=== PATIENT | male | born 1970 | race Hispanic/Latino ===

== ENCOUNTER 2017-10-13 21:23 | Emergency (ER) | payer SELFPAY ==
[~2017-10-13 21:23] MED LIST: LACT10SO9 PO; LEVO50TA4 PO; PANT40TA25 PO; PROP1VIA6 PO
== END 2017-10-13 22:33 | disposition home or self-care (01) ==
LOC: EDH 21:23
DX: M79.604 Pain in right leg (principal); I10 Essential (primary) hypertension
CPT/HCPCS: 99281

== ENCOUNTER 2018-05-09 19:26 | Emergency (ER) | payer OTHER ==
[2018-05-09] MEDS ORDERED: ACETAMINOPHEN EXTRA STRENGTH 500 MG TABLET ONE (21:55)
== END 2018-05-09 21:59 | disposition home or self-care (01) ==
LOC: EDH 19:26
DX: S02.31XA Fracture of orbital floor, right side, initial encounter for closed fracture (principal); I10 Essential (primary) hypertension; R22.0 Localized swelling, mass and lump, head; Y04.2XXA Assault by strike against or bumped into by another person, initial encounter; Y93.89 Activity, other specified; Y92.098 Other place in other non-institutional residence as the place of occurrence of the external cause; Y99.8 Other external cause status
CPT/HCPCS: 70450; 70486

== ENCOUNTER 2022-11-05 13:42 | Emergency (ER) | payer BC ==
[~2022-11-05] VITALS: Ht 177.8 cm; Wt 93.0 kg
[~2022-11-05 13:42] MED LIST changes: -PANT40TA25 PO; +PANT40TA55 PO
[2022-11-05 13:43] VITALS: BP 145/87
[2022-11-05] MEDS ORDERED: PANTOPRAZOLE 40 MG/VIAL IV ONE (14:30)
[2022-11-05] MEDS ORDERED: 0.9%NACL 1000ML 1,000 ML IV SCH (14:30)
[2022-11-05] MEDS ORDERED: MORPHINE 4 MG SYG IVP ONE (14:30)
[2022-11-05 14:45] LABS: BASOPHILS % (AUTO) 0.7 % (0.0-5.0); HEMATOCRIT 38.9 % (42-54); LYMPHOCYTES % (AUTO) 3.8 % (21.0-51.0); MEAN CORPUSCULAR HEMOGLOBIN 30.7 pg (27.0-33.0); MEAN CORPUSCULAR HGB CONC 32.4 g/dL (32.0-36.0); MEAN CORPUSCULAR VOLUME 94.9 fL (79-99); MONOCYTES % (AUTO) 7.6 % (3.0-13.0); NEUTROPHILS % (AUTO) 85.4 % (40.0-77.0); PLATELET COUNT (AUTO) 36 K/uL (130-400); RED CELL DISTRIBUTION WIDTH 16.7 % (11.0-15.5); WHITE BLOOD COUNT (AUTO) 6.1 K/uL (4.8-10.8)
[2022-11-05 15:15] LABS: PLATELET MORPHOLOGY COMMENT MARKED DECREASE
[2022-11-05 15:18] LABS: ALBUMIN 3.1 g/dL (3.5-5.0)
[2022-11-05] MEDS ORDERED: ONDA4TAB10 PO (16:12)
[2022-11-05] MEDS ORDERED: ESOM40CA PO (16:12)
== END 2022-11-05 16:18 | disposition home or self-care (01) ==
LOC: EDH 13:42
DX: I10 Essential (primary) hypertension (principal); K74.60 Unspecified cirrhosis of liver; Z79.899 Other long term (current) drug therapy; Z98.890 Other specified postprocedural states
CPT/HCPCS: 99284; 96374; 96375; 80053; 83690; 85025; 36415; J2270; C9113

== ENCOUNTER 2023-03-02 09:11 | Emergency (ER) | payer OTHER ==
[~2023-03-02] VITALS: Ht 177.8 cm; Wt 90.3 kg
[~2023-03-02 09:11] MED LIST changes: +ESOM40CA PO; -LEVO50TA4 PO; +LEVO75 PO; +ONDA4TAB10 PO
[2023-03-02] MEDS ORDERED: 0.9%NACL 1000ML 1,000 ML IV ONE (10:00)
[2023-03-02 10:01] LABS: BASOPHILS # (AUTO) 0.04 K/uL (0.00-0.20); EOSINOPHILS # (AUTO) 0.21 K/uL (0.00-0.70); EOSINOPHILS % (AUTO) 5.4 % (0.0-8.0); HEMATOCRIT 35.3 % (42-54); IMMATURE GRANULOCYTE ABSOLUTE 0.05 K/uL (0-1); LYMPHOCYTES # (AUTO) 0.4 K/uL (1.0-4.8); LYMPHOCYTES % (AUTO) 10.1 % (21.0-51.0); MEAN CORPUSCULAR HEMOGLOBIN 32.5 pg (27.0-33.0); MEAN CORPUSCULAR HGB CONC 33.7 g/dL (32.0-36.0); MEAN CORPUSCULAR VOLUME 96.4 fL (79-99); MONOCYTES # (AUTO) 0.4 K/uL (0.1-1.0); MONOCYTES % (AUTO) 10.6 % (3.0-13.0); NEUTROPHILS # (AUTO) 2.8 K/uL (1.8-7.7); NEUTROPHILS % (AUTO) 71.6 % (40.0-77.0); PLATELET COUNT (AUTO) 34 K/uL (130-400); RED BLOOD CELL COUNT(AUTO) 3.66 MIL/uL (4.50-6.20); RED CELL DISTRIBUTION WIDTH 16.8 % (11.0-15.5); WHITE BLOOD COUNT (AUTO) 3.9 K/uL (4.8-10.8)
[2023-03-02 10:08] LABS: CREATININE 0.9 mg/dL (0.5-1.5); POTASSIUM 4.1 mmol/L (3.5-5.1)
[2023-03-02 10:13] LABS: ALBUMIN 2.7 g/dL (3.5-5.0); BILIRUBIN,TOTAL 1.2 mg/dL (0.2-1.0)
[2023-03-02 10:14] LABS: INR 1.18 (0.85-1.15); PROTHROMBIN TIME 13.5 SEC (9.6-11.6)
[2023-03-02 10:33] LABS: PLATELET MORPHOLOGY COMMENT MARKED DECREASE
[2023-03-02 10:43] LABS: MAGNESIUM 1.9 mg/dL (1.80-2.40); THYROID STIMULATING HORMONE 36.85 uIU/mL (0.36-3.74)
[2023-03-02 10:51] LABS: APPEARANCE,URINE CLEAR (CLEAR); BILIRUBIN,URINE NEGATIVE (NEGATIVE); COLOR,URINE YELLOW (YELLOW); GLUCOSE, URINE (UA) NEGATIVE (NEGATIVE); KETONES,URINE NEGATIVE (NEGATIVE); LEUKOCYTE ESTERASE ,URINE NEGATIVE Leu/uL (NEGATIVE); NITRATE,URINE NEGATIVE (NEGATIVE); OCCULT BLOOD,URINE NEGATIVE (NEGATIVE); PROTEIN,URINE NEGATIVE (NEGATIVE)
[2023-03-02 11:03] LABS: ADD UA MICROSCOPIC YES
[2023-03-02 11:04] LABS: RBC,URINE 0-1 /HPF (0-1); WBC,URINE 0-1 /HPF (0-1)
[2023-03-02] MEDS ORDERED: LACTULOSE 20 GM/30 ML UDCUP PO ONE (14:30)
[2023-03-02] MEDS ORDERED: PROP10TA10 PO (14:31)
[2023-03-02] MEDS ORDERED: PANT20TA18 PO (14:31)
[2023-03-02] MEDS ORDERED: LACT10SO9 PO (14:31)
[2023-03-02 14:44] VITALS: BP 123/78; PULSE 74; RESP 18; O2SAT 98
== END 2023-03-02 14:48 | disposition home or self-care (01) ==
LOC: EDH 09:11
DX: R14.0 Abdominal distension (gaseous) (principal); K70.30 Alcoholic cirrhosis of liver without ascites; E03.9 Hypothyroidism, unspecified; I10 Essential (primary) hypertension; Z79.890 Hormone replacement therapy; Z79.899 Other long term (current) drug therapy
CPT/HCPCS: 99284; 96360; 76700; 96361; 84443; 83735; 80053; 82140; 83690; 85025; 85610; 85730; 82607; 81001; 36415; 74018; J7030

== ENCOUNTER 2023-03-21 08:43 | Emergency (ER) | payer OTHER ==
[~2023-03-21] VITALS: Ht 177.8 cm; Wt 90.7 kg
[~2023-03-21 08:43] MED LIST changes: +PANT20TA18 PO; +PROP10TA10 PO
[2023-03-21] MEDS ORDERED: LIDOCAINE HCL 2% VISCOUS 15 ML UDCUP PO ONE (09:00)
[2023-03-21] MEDS ORDERED: PANTOPRAZOLE 40 MG/VIAL IVP ONE (09:00)
[2023-03-21] MEDS ORDERED: MAG/ALUM/SIMETH 30 ML UDCUP PO ONE (09:00)
[2023-03-21] MEDS ORDERED: LACTATED RINGERS 1000ML 1,000 ML IV ONE (09:00)
[2023-03-21] MEDS ORDERED: ONDANSETRON 4MG INJ IVP ONE (09:00)
[2023-03-21] MEDS ORDERED: KETOROLAC 30MG VIAL (30MG/ML) IVP ONE (09:00)
[2023-03-21 09:24] LABS: BASOPHILS # (AUTO) 0.07 K/uL (0.00-0.20); BASOPHILS % (AUTO) 0.8 % (0.0-5.0); EOSINOPHILS % (AUTO) 2.2 % (0.0-8.0); HEMATOCRIT 40.3 % (42-54); IMMATURE GRANULOCYTE ABSOLUTE 0.06 K/uL (0-1); LYMPHOCYTES # (AUTO) 0.5 K/uL (1.0-4.8); LYMPHOCYTES % (AUTO) 5.5 % (21.0-51.0); MEAN CORPUSCULAR HEMOGLOBIN 32.4 pg (27.0-33.0); MEAN CORPUSCULAR HGB CONC 32.5 g/dL (32.0-36.0); MEAN CORPUSCULAR VOLUME 99.8 fL (79-99); MONOCYTES # (AUTO) 0.8 K/uL (0.1-1.0); MONOCYTES % (AUTO) 8.9 % (3.0-13.0); NEUTROPHILS # (AUTO) 7.3 K/uL (1.8-7.7); NEUTROPHILS % (AUTO) 81.9 % (40.0-77.0); PLATELET COUNT (AUTO) 49 K/uL (130-400); RED BLOOD CELL COUNT(AUTO) 4.04 MIL/uL (4.50-6.20); RED CELL DISTRIBUTION WIDTH 17.2 % (11.0-15.5); WHITE BLOOD COUNT (AUTO) 8.9 K/uL (4.8-10.8)
[2023-03-21 09:36] LABS: BILIRUBIN,TOTAL 1.4 mg/dL (0.2-1.0); CREATININE 1.1 mg/dL (0.5-1.5); POTASSIUM 4.3 mmol/L (3.5-5.1)
[2023-03-21 10:04] LABS: PLATELET MORPHOLOGY COMMENT DECREASED
[2023-03-21] MEDS ORDERED: IOHEXOL-350 75 ML VIAL IV ONE (10:44)
[2023-03-21 11:38] LABS: APPEARANCE,URINE CLEAR (CLEAR); BILIRUBIN,URINE NEGATIVE (NEGATIVE); COLOR,URINE YELLOW (YELLOW); GLUCOSE, URINE (UA) NEGATIVE (NEGATIVE); KETONES,URINE NEGATIVE (NEGATIVE); LEUKOCYTE ESTERASE ,URINE NEGATIVE Leu/uL (NEGATIVE); NITRATE,URINE NEGATIVE (NEGATIVE); OCCULT BLOOD,URINE NEGATIVE (NEGATIVE); PROTEIN,URINE NEGATIVE (NEGATIVE); UROBILINOGEN,URINE 0.2 mg/dL (0.2-1.0)
[2023-03-21 11:42] LABS: AMPHET/METH SCREEN,URINE NEGATIVE (NEGATIVE); BARBITURATE SCREEN, URINE NEGATIVE (NEGATIVE); BENZODIAZEPINES SCREEN,URINE NEGATIVE (NEGATIVE); CANNABINOID SCREEN,URINE POSITIVE (NEGATIVE); COCAINE SCREEN,URINE NEGATIVE (NEGATIVE); OPIATE SCREEN,URINE NEGATIVE (NEGATIVE); PHENCYCLIDINE SCREEN,URINE NEGATIVE (NEGATIVE)
[2023-03-21 11:43] LABS: ADD UA MICROSCOPIC YES
[2023-03-21] MEDS ORDERED: FAMO20TA8 PO (11:52)
[2023-03-21 12:00] VITALS: BP 122/85; PULSE 64; RESP 16; O2SAT 100
[2023-03-21 12:22] LABS: MUCUS,URINE RARE LPF (None Seen); SQUAMOUS EPITHELIAL CELL,UR RARE /HPF (0-2); WBC,URINE 0-1 /HPF (0-1)
== END 2023-03-21 12:03 | disposition home or self-care (01) ==
LOC: EDH 08:43
DX: K29.70 Gastritis, unspecified, without bleeding (principal); F12.10 Cannabis abuse, uncomplicated; K74.60 Unspecified cirrhosis of liver; I10 Essential (primary) hypertension; E03.9 Hypothyroidism, unspecified; Z79.890 Hormone replacement therapy; Z79.899 Other long term (current) drug therapy
CPT/HCPCS: 99285; 74177; 96374; 71045; 96361; 96375; 84484; 80053; 80305; 82140; 83690; 85025; 81001; 36415; J7120; J2405; J1885; C9113; Q9967

== ENCOUNTER 2023-09-23 11:57 | Emergency (ER) | payer BC, OTHER ==
[~2023-09-23] VITALS: Ht 177.8 cm; Wt 90.7 kg
[~2023-09-23 11:57] MED LIST changes: +CYAN-52 PO; -ESOM40CA PO; +FOLI1 PO; +FURO20TA4 PO; +Folic Acid/Vitamin B Comp W-C PO; -LEVO75 PO; +LEVO75TA10 PO; +Midodrine Hcl PO; -ONDA4TAB10 PO; -PANT20TA18 PO; +PANT40TA54 PO; -PANT40TA55 PO; -PROP10TA10 PO; -PROP1VIA6 PO
[2023-09-23 12:52] VITALS: BP 151/81; PULSE 72; RESP 22; O2SAT 99
[2023-09-23 13:02] LABS: BASOPHILS # (AUTO) 0.07 K/uL (0.00-0.20); BASOPHILS % (AUTO) 0.8 % (0.0-5.0); EOSINOPHILS # (AUTO) 0.21 K/uL (0.00-0.70); EOSINOPHILS % (AUTO) 2.5 % (0.0-8.0); HEMATOCRIT 43.4 % (42-54); IMMATURE GRANULOCYTE ABSOLUTE 0.05 K/uL (0-1); LYMPHOCYTES # (AUTO) 0.6 K/uL (1.0-4.8); LYMPHOCYTES % (AUTO) 7.6 % (21.0-51.0); MEAN CORPUSCULAR HEMOGLOBIN 32.4 pg (27.0-33.0); MEAN CORPUSCULAR HGB CONC 33.4 g/dL (32.0-36.0); MEAN CORPUSCULAR VOLUME 96.9 fL (79-99); MONOCYTES # (AUTO) 0.5 K/uL (0.1-1.0); MONOCYTES % (AUTO) 6.2 % (3.0-13.0); NEUTROPHILS % (AUTO) 82.3 % (40.0-77.0); PLATELET COUNT (AUTO) 41 K/uL (130-400); RED BLOOD CELL COUNT(AUTO) 4.48 MIL/uL (4.50-6.20); RED CELL DISTRIBUTION WIDTH 17.2 % (11.0-15.5); WHITE BLOOD COUNT (AUTO) 8.5 K/uL (4.8-10.8)
[2023-09-23 13:09] LABS: CREATININE 0.9 mg/dL (0.5-1.5); POTASSIUM 4.6 mmol/L (3.5-5.1)
[2023-09-23] MEDS: ONDANSETRON 4MG INJ IVP ONE (13:12)
[2023-09-23] MEDS: MORPHINE 2 MG SYG IVP ONE (13:12)
[2023-09-23 13:13] LABS: ALBUMIN 3.4 g/dL (3.5-5.0); BILIRUBIN,TOTAL 1.5 mg/dL (0.2-1.0); TOTAL PROTEIN, SERUM 9.6 g/dL (6.0-8.3)
[2023-09-23 13:15] LABS: INR 1.18 (0.85-1.15); PROTHROMBIN TIME 13.5 SEC (9.6-11.6)
[2023-09-23 13:17] LABS: PARTIAL THROMBOPLASTIN TIME 29.5 SEC (26.3-35.5)
[2023-09-23] MEDS: SOLU-MEDROL 125MG VIAL IVP ONE (13:38)
[2023-09-23] MEDS: DiphenhydrAMINE HCL 50 MG/ML VIAL ONE (13:38)
[2023-09-23] MEDS: DiphenhydrAMINE HCL 50 MG/ML VIAL IV ONE (13:38)
[2023-09-23] MEDS: SOLU-MEDROL 125MG VIAL ONE (13:38)
[2023-09-23 13:59] LABS: PLATELET MORPHOLOGY COMMENT MARKED DECREASE
[2023-09-23] MEDS ORDERED: METO10TA41 PO (14:08)
[2023-09-23] MEDS: HYDROCODONE/ACETAMINOPHEN 5/325 MG TAB PO ONE (14:31)
[2023-09-24] MEDS ORDERED: FAMO-136 PO (10:27)
[2023-09-24] MEDS ORDERED: ONDA4TAB10 PO (10:27)
[2023-09-24] MEDS ORDERED: LACT10SO5 PO (10:27)
[2023-09-24] MEDS ORDERED: DICY20TA2 PO (10:27)
== END 2023-09-23 14:42 | disposition home or self-care (01) ==
LOC: EDH 11:57
DX: K74.60 Unspecified cirrhosis of liver (principal); R18.8 Other ascites; R14.0 Abdominal distension (gaseous); E72.20 Disorder of urea cycle metabolism, unspecified; I10 Essential (primary) hypertension; E03.9 Hypothyroidism, unspecified; Z79.899 Other long term (current) drug therapy; Z98.890 Other specified postprocedural states; Z88.8 Allergy status to other drugs, medicaments and biological substances
CPT/HCPCS: 99284; 96374; 96375; 80053; 82140; 83690; 85025; 85610; 85730; 36415; J1200; J2270; J2930; J2405

== ENCOUNTER 2023-09-24 08:18 | Emergency (ER) | payer BC ==
[~2023-09-24] VITALS: Ht 177.8 cm; Wt 90.7 kg
[~2023-09-24 08:18] MED LIST changes: +METO10TA41 PO
[2023-09-24 08:36] VITALS: BP 138/76; PULSE 67; RESP 18; O2SAT 100
[2023-09-24 08:44] LABS: BASOPHILS # (AUTO) 0.01 K/uL (0.00-0.20); BASOPHILS % (AUTO) 0.1 % (0.0-5.0); EOSINOPHILS # (AUTO) 0.01 K/uL (0.00-0.70); EOSINOPHILS % (AUTO) 0.1 % (0.0-8.0); HEMATOCRIT 39.6 % (42-54); IMMATURE GRANULOCYTE ABSOLUTE 0.05 K/uL (0-1); LYMPHOCYTES # (AUTO) 0.3 K/uL (1.0-4.8); LYMPHOCYTES % (AUTO) 2.7 % (21.0-51.0); MEAN CORPUSCULAR HEMOGLOBIN 32.3 pg (27.0-33.0); MEAN CORPUSCULAR HGB CONC 32.8 g/dL (32.0-36.0); MEAN CORPUSCULAR VOLUME 98.5 fL (79-99); MONOCYTES # (AUTO) 0.3 K/uL (0.1-1.0); MONOCYTES % (AUTO) 3.4 % (3.0-13.0); NEUTROPHILS # (AUTO) 9.3 K/uL (1.8-7.7); NEUTROPHILS % (AUTO) 93.2 % (40.0-77.0); PLATELET COUNT (AUTO) 37 K/uL (130-400); RED BLOOD CELL COUNT(AUTO) 4.02 MIL/uL (4.50-6.20); RED CELL DISTRIBUTION WIDTH 17.1 % (11.0-15.5)
[2023-09-24 08:49] LABS: CREATININE 0.9 mg/dL (0.5-1.5); POTASSIUM 4.4 mmol/L (3.5-5.1)
[2023-09-24 08:54] LABS: ALBUMIN 3.1 g/dL (3.5-5.0); BILIRUBIN,TOTAL 1.3 mg/dL (0.2-1.0)
[2023-09-24 08:58] LABS: INR 1.29 (0.85-1.15); PROTHROMBIN TIME 14.7 SEC (9.6-11.6)
[2023-09-24 08:59] LABS: PARTIAL THROMBOPLASTIN TIME 31.9 SEC (26.3-35.5)
[2023-09-24] MEDS: FAMOTIDINE 20MG VIAL IV ONE (09:05)
[2023-09-24] MEDS ORDERED: LACT10SO5 PO (10:27)
[2023-09-24] MEDS ORDERED: DICY20TA2 PO (10:27)
[2023-09-24] MEDS ORDERED: FAMO-136 PO (10:27)
[2023-09-24] MEDS ORDERED: ONDA4TAB10 PO (10:27)
== END 2023-09-24 10:40 | disposition home or self-care (01) ==
LOC: EDH 08:18
DX: R18.8 Other ascites (principal); K74.60 Unspecified cirrhosis of liver; E72.20 Disorder of urea cycle metabolism, unspecified; D69.6 Thrombocytopenia, unspecified; I10 Essential (primary) hypertension; E03.9 Hypothyroidism, unspecified; Z79.899 Other long term (current) drug therapy; Z98.890 Other specified postprocedural states; Z88.8 Allergy status to other drugs, medicaments and biological substances
CPT/HCPCS: 99284; 96374; 80053; 82140; 85025; 85610; 85730; 36415; 74021; J3490

== ENCOUNTER 2024-03-02 01:53 | Inpatient (IN) | payer BC ==
[~2024-03-02] VITALS: Ht 177.8 cm; Wt 88.0 kg
[~2024-03-02 01:53] MED LIST changes: -CYAN-52 PO; +DICY20TA2 PO; +ELTR50TA PO; +FAMO20TA8 PO; -Folic Acid/Vitamin B Comp W-C PO; +LACT10SO75 PO; -LACT10SO9 PO; +LEVO75 PO; -LEVO75TA10 PO; +METO10TA3 PO; -METO10TA41 PO; +MIDO10TA PO; -Midodrine Hcl PO; +PARO-37 PO; +PROP20TA96 PO
[2024-03-02 02:25] LABS: BASOPHILS # (AUTO) 0.06 K/uL (0.00-0.20); BASOPHILS % (AUTO) 1.1 % (0.0-5.0); EOSINOPHILS # (AUTO) 0.23 K/uL (0.00-0.70); EOSINOPHILS % (AUTO) 4.1 % (0.0-8.0); HEMATOCRIT 36.3 % (42-54); IMMATURE GRANULOCYTE ABSOLUTE 0.07 K/uL (0-1); LYMPHOCYTES # (AUTO) 0.6 K/uL (1.0-4.8); LYMPHOCYTES % (AUTO) 10.3 % (21.0-51.0); MEAN CORPUSCULAR HEMOGLOBIN 32.4 pg (27.0-33.0); MEAN CORPUSCULAR HGB CONC 33.6 g/dL (32.0-36.0); MEAN CORPUSCULAR VOLUME 96.5 fL (79-99); MONOCYTES % (AUTO) 18.2 % (3.0-13.0); NEUTROPHILS # (AUTO) 3.7 K/uL (1.8-7.7); NEUTROPHILS % (AUTO) 65.1 % (40.0-77.0); PLATELET COUNT (AUTO) 163 K/uL (130-400); RED BLOOD CELL COUNT(AUTO) 3.76 MIL/uL (4.50-6.20); RED CELL DISTRIBUTION WIDTH 16.4 % (11.0-15.5); WHITE BLOOD COUNT (AUTO) 5.6 K/uL (4.8-10.8)
[2024-03-02 02:36] LABS: POTASSIUM 4.5 mmol/L (3.5-5.1)
[2024-03-02 02:40] LABS: ALBUMIN 2.6 g/dL (3.5-5.0); BILIRUBIN,TOTAL 1.7 mg/dL (0.2-1.0); TOTAL PROTEIN, SERUM 7.9 g/dL (6.0-8.3)
[2024-03-02 02:43] LABS: INR 1.37 (0.85-1.15); PROTHROMBIN TIME 14.5 SEC (9.6-11.6)
[2024-03-02 03:16] LABS: B-TYPE NATRIURETIC PEPTIDE 159 pg/mL (0-100)
[2024-03-02] MEDS: METOCLOPRAMIDE 10 MG/2 ML VIAL IVP ONE (03:59)
[2024-03-02] MEDS: PANTOPRAZOLE 40 MG/VIAL IVP ONE (03:59)
[2024-03-02] MEDS: MORPHINE 2 MG SYG IVP ONE (03:59)
[2024-03-02 04:20] LABS: ADD UA MICROSCOPIC NO; APPEARANCE,URINE CLEAR (CLEAR); BILIRUBIN,URINE NEGATIVE (NEGATIVE); COLOR,URINE LIGHT-YELLOW (YELLOW); GLUCOSE, URINE (UA) NEGATIVE (NEGATIVE); KETONES,URINE NEGATIVE (NEGATIVE); LEUKOCYTE ESTERASE ,URINE NEGATIVE Leu/uL (NEGATIVE); NITRATE,URINE NEGATIVE (NEGATIVE); OCCULT BLOOD,URINE NEGATIVE (NEGATIVE); PROTEIN,URINE NEGATIVE (NEGATIVE); UROBILINOGEN,URINE 0.2 mg/dL (0.2-1.0)
[2024-03-02] MEDS: LACTULOSE 20 GM/30 ML UDCUP PO PRN (08:54)
[2024-03-02] MEDS: LACTULOSE 20 GM/30 ML UDCUP PO ONE (09:14)
[2024-03-02] MEDS: 0.9%NACL 1000ML 1,000 ML IV SCH (09:14)
[2024-03-02 10:07] VITALS: O2SAT 99
[2024-03-02 10:10] VITALS: BP 134/87; PULSE 54; RESP 18
[2024-03-02 10:30] VITALS: O2SAT 95
[2024-03-02] MEDS: MORPHINE 2 MG SYG IVP PRN (12:21)
[2024-03-02 16:00] VITALS: BP 105/57; PULSE 63; RESP 18
[2024-03-02 20:00] VITALS: BP 99/67; PULSE 68; RESP 17; O2SAT 97
[2024-03-02] MEDS ORDERED: MIDODRINE HCL PO SCH (21:00)
[2024-03-02] MEDS: PROPRANOLOL HCL 20 MG TAB PO SCH (21:07)
[2024-03-02] MEDS: METOCLOPRAMIDE 10 MG TABLET PO SCH (21:07)
[2024-03-02] MEDS: FAMOTIDINE 20MG TAB PO SCH (21:07)
[2024-03-02 23:50] VITALS: BP 98/63; PULSE 62; RESP 17
[2024-03-03] VITALS (18 sets, daily range): BP systolic 89–123; BP diastolic 48–81; PULSE 50–68; RESP 12–18; O2SAT 95
[2024-03-03] MEDS: LEVOTHYROXINE 75 MCG TABLET PO SCH (06:57)
[2024-03-03] MEDS: ELTROMBOPAG OLAMINE PO SCH (09:00)
[2024-03-03] MEDS ORDERED: LIDOCAINE PF 100MG/5ML (2%) SYRINGE 5ML ONE ×2 (10:23→10:24)
[2024-03-03] MEDS ORDERED: FENTANYL CITRATE PF 50 MCG/1 ML 2ML VIAL ONE (10:23)
[2024-03-03] MEDS ORDERED: ONDANSETRON 4MG INJ ONE (10:23)
[2024-03-03] MEDS ORDERED: PROPOFOL 10 MG/ML 20ML VIAL IV ONE (10:23)
[2024-03-03] MEDS: FUROSEMIDE 20 MG TABLET PO SCH (11:59)
[2024-03-03] MEDS: FOLIC ACID 1 MG TABLET PO SCH (11:59)
[2024-03-03] MEDS: PAROXETINE HCL 20 MG TABLET PO SCH (12:00)
[2024-03-03] MEDS: PANTOPRAZOLE 40 MG TAB DR PO SCH (12:00)
[2024-03-03] MEDS ORDERED: LACE ASSESSMENT (SCORE > 11) MISC SCH (16:30)
== END 2024-03-03 16:52 | disposition home or self-care (01) | DRG 370 ==
LOC: EDH 01:53 → EDHIP 08:45 → 3DH 10:20
PROVIDERS: ADMIT Internal Medicine Hematology & Oncology; ATTEND Internal Medicine Hematology & Oncology
PROC: 0DJ08ZZ Inspection of Upper Intestinal Tract, Via Natural or Artificial Opening Endoscopic (ICD-10-PCS; principal; 2024-03-03)
DX: I85.00 Esophageal varices without bleeding (principal); K74.69 Other cirrhosis of liver; D69.6 Thrombocytopenia, unspecified; E03.9 Hypothyroidism, unspecified; K59.00 Constipation, unspecified; I10 Essential (primary) hypertension; Z79.899 Other long term (current) drug therapy; Z88.0 Allergy status to penicillin; Z88.8 Allergy status to other drugs, medicaments and biological substances
CPT/HCPCS: 36415; 43235; 71045; 74176; 80053; 81003; 82140; 83690; 83880; 84484; 85025; 85610; 85730; 93005; 96374; 96375; G0378; J2001; J2270; J2405; J2470; J2704; J2765; J3010; J7030; A4222; A4223; A4620; J3490

== ENCOUNTER 2024-03-22 15:32 | Inpatient (IN) | payer BC ==
[~2024-03-22] VITALS: Ht 177.8 cm; Wt 83.4 kg
[2024-03-22 16:07] LABS: BASOPHILS # (AUTO) 0.06 K/uL (0.00-0.20); BASOPHILS % (AUTO) 1.1 % (0.0-5.0); EOSINOPHILS # (AUTO) 0.16 K/uL (0.00-0.70); EOSINOPHILS % (AUTO) 2.9 % (0.0-8.0); HEMATOCRIT 36.9 % (42-54); IMMATURE GRANULOCYTE ABSOLUTE 0.08 K/uL (0-1); LYMPHOCYTES # (AUTO) 0.7 K/uL (1.0-4.8); LYMPHOCYTES % (AUTO) 12.7 % (21.0-51.0); MEAN CORPUSCULAR HEMOGLOBIN 32.6 pg (27.0-33.0); MEAN CORPUSCULAR HGB CONC 33.9 g/dL (32.0-36.0); MEAN CORPUSCULAR VOLUME 96.3 fL (79-99); MONOCYTES # (AUTO) 0.6 K/uL (0.1-1.0); MONOCYTES % (AUTO) 10.8 % (3.0-13.0); NEUTROPHILS # (AUTO) 3.9 K/uL (1.8-7.7); NEUTROPHILS % (AUTO) 71.1 % (40.0-77.0); PLATELET COUNT (AUTO) 129 K/uL (130-400); RED BLOOD CELL COUNT(AUTO) 3.83 MIL/uL (4.50-6.20); RED CELL DISTRIBUTION WIDTH 16.8 % (11.0-15.5); WHITE BLOOD COUNT (AUTO) 5.5 K/uL (4.8-10.8)
[2024-03-22 16:16] LABS: INR 1.38 (0.85-1.15); PROTHROMBIN TIME 14.6 SEC (9.6-11.6)
[2024-03-22 16:17] LABS: PARTIAL THROMBOPLASTIN TIME 34.3 SEC (26.3-35.5)
[2024-03-22 16:23] LABS: CARBON DIOXIDE 25 mmol/L (21-32); CHLORIDE 104 mmol/L (101-111); CREATININE 1.1 mg/dL (0.5-1.3); GLOMERULAR FILTR. RATE CALC 81 mL/min (>90); GLUCOSE,RANDOM 137 mg/dL (70-105); POTASSIUM 4.4 mmol/L (3.5-5.1); SODIUM SERUM 137 mmol/L (136-145); UREA NITROGEN, BLOOD 16 mg/dL (7-18)
[2024-03-22 16:30] LABS: ALANINE AMINOTRANSFERASE 98 U/L (12-78); ALBUMIN 2.7 g/dL (3.5-5.0); ASPARTATE AMINOTRANSFERASE 132 U/L (10-37); BILIRUBIN,TOTAL 1.5 mg/dL (0.2-1.0); TOTAL PROTEIN, SERUM 7.5 g/dL (6.0-8.3)
[2024-03-22 16:31] LABS: ALCOHOL, BLOOD < 3 mg/dL (0-10)
[2024-03-22 16:32] LABS: AMMONIA 123 umol/L (11-32)
[2024-03-22 18:37] LABS: APPEARANCE,URINE CLEAR (CLEAR); BILIRUBIN,URINE NEGATIVE (NEGATIVE); COLOR,URINE YELLOW (YELLOW); GLUCOSE, URINE (UA) NEGATIVE (NEGATIVE); KETONES,URINE NEGATIVE (NEGATIVE); LEUKOCYTE ESTERASE ,URINE NEGATIVE Leu/uL (NEGATIVE); NITRATE,URINE NEGATIVE (NEGATIVE); OCCULT BLOOD,URINE NEGATIVE (NEGATIVE); PROTEIN,URINE NEGATIVE (NEGATIVE)
[2024-03-22 18:40] LABS: ADD UA MICROSCOPIC YES
[2024-03-22 18:43] LABS: MUCUS,URINE RARE LPF (None Seen); RBC,URINE 0-1 /HPF (0-1); WBC,URINE 0-1 /HPF (0-1)
[2024-03-22] MEDS: LACTULOSE 20 GM/30 ML UDCUP PO STA (19:11)
[2024-03-22] MEDS: LACTULOSE 20 GM/30 ML UDCUP PO ONE ×2 (20:00→21:47)
[2024-03-22] MEDS: LACTULOSE 20 GM/30 ML UDCUP PR ONE ×2 (21:47)
[2024-03-22] MEDS: RIFAXIMIN 550 MG TABLET PO SCH (21:49)
[2024-03-23 00:05] VITALS: BP 118/76; PULSE 51; RESP 20; TEMP 98.2
[2024-03-23] MEDS ORDERED: RIFA550T PO (00:49)
[2024-03-23] MEDS ORDERED: LEVO100 PO (00:49)
[2024-03-23] MEDS ORDERED: SPIR50TA5 PO (00:49)
[2024-03-23 04:00] VITALS: BP 95/64; PULSE 52; RESP 20; TEMP 98.3
[2024-03-23 08:20] VITALS: BP 99/65; PULSE 50; RESP 18; TEMP 98.1
[2024-03-23 11:16] VITALS: BP 112/72; PULSE 52; RESP 18; TEMP 98
[2024-03-23] MEDS: 0.9%NACL 1000ML 1,000 ML IV SCH (14:48)
[2024-03-23 16:20] VITALS: BP 100/65; PULSE 50; RESP 18; TEMP 98
[2024-03-23] MEDS: morPHINE 2 MG SYG IVP PRN (19:52)
[2024-03-23 20:00] VITALS: BP 116/73; PULSE 52; RESP 18; TEMP 98.4; O2SAT 98
[2024-03-24] VITALS: BP 96/60; PULSE 54; RESP 17; TEMP 98.1
[2024-03-24 04:00] VITALS: BP 99/60; PULSE 50; RESP 17; TEMP 97.5
[2024-03-24 08:00] VITALS: BP 102/67; PULSE 49; RESP 18; TEMP 97.9
[2024-03-24] MEDS: FOLic ACID 1 MG TABLET PO SCH (09:00)
[2024-03-24] MEDS: (Eltrombopag Olamine (Promacta) 1 TAB) PO SCH (09:00)
[2024-03-24] MEDS: RIFAXIMIN 550 MG TABLET PO SCH (09:00)
[2024-03-24] MEDS: PROPRANOLOL HCL 20 MG TAB PO SCH (09:00)
[2024-03-24] MEDS: SPIRONOLACTONE 25 MG TAB PO SCH (09:00)
[2024-03-24] MEDS ORDERED: FAMOTIDINE 20MG TAB PO SCH (09:00)
[2024-03-24] MEDS: PANTOPRAZOLE 40 MG TAB DR PO SCH (09:00)
[2024-03-24] MEDS: DICYCLOMINE HCL 20 MG TAB PO SCH (09:00)
[2024-03-24] MEDS: furoSEMIDE 20 MG TABLET PO SCH (09:00)
[2024-03-24] MEDS: PARoxetine HCL 20 MG TABLET PO SCH (09:00)
[2024-03-24 10:20] VITALS: O2SAT 98
[2024-03-24] MEDS: LACTULOSE 20 GM/30 ML UDCUP PO PRN (11:02)
[2024-03-24 11:54] VITALS: BP 116/78; PULSE 51; RESP 19; TEMP 97.4
[2024-03-24 16:00] VITALS: BP 115/81; PULSE 58; RESP 19; TEMP 98
[2024-03-25] MEDS ORDERED: levoTHYROxine 100 MCG TABLET PO SCH (06:30)
== END 2024-03-24 18:15 | disposition home or self-care (01) | DRG 443 ==
LOC: EDH 15:32 → EDHIP 18:55 → 3BH 03-23 00:05
PROVIDERS: ADMIT Internal Medicine Hematology & Oncology; ATTEND Internal Medicine Hematology & Oncology
DX: K76.82 Hepatic encephalopathy (principal); I12.9 Hypertensive chronic kidney disease with stage 1 through stage 4 chronic kidney disease, or unspecified chronic kidney disease; N18.9 Chronic kidney disease, unspecified; R07.89 Other chest pain; E11.22 Type 2 diabetes mellitus with diabetic chronic kidney disease; E11.65 Type 2 diabetes mellitus with hyperglycemia; K74.60 Unspecified cirrhosis of liver; E03.9 Hypothyroidism, unspecified; D69.6 Thrombocytopenia, unspecified; R79.89 Other specified abnormal findings of blood chemistry; G89.29 Other chronic pain; Z88.0 Allergy status to penicillin
CPT/HCPCS: 36415; 71045; 80053; 81001; 82140; 82948; 84484; 85025; 85610; 85730; 93005; G0378; J2270

== ENCOUNTER 2024-09-02 05:54 | Observation (INO) | payer BC ==
[~2024-09-02] VITALS: Ht 177.8 cm; Wt 88.9 kg
[~2024-09-02 05:54] MED LIST changes: +LEVO100 PO; -LEVO75 PO; -MIDO10TA PO; +RIFA550T PO; +SPIR50TA5 PO
[2024-09-02 06:36] LABS: BASOPHILS # (AUTO) 0.06 K/uL (0.00-0.20); BASOPHILS % (AUTO) 1.2 % (0.0-5.0); EOSINOPHILS # (AUTO) 0.25 K/uL (0.00-0.70); EOSINOPHILS % (AUTO) 4.9 % (0.0-8.0); IMMATURE GRANULOCYTE ABSOLUTE 0.06 K/uL (0-1); LYMPHOCYTES # (AUTO) 0.7 K/uL (1.0-4.8); LYMPHOCYTES % (AUTO) 14.2 % (21.0-51.0); MEAN CORPUSCULAR HEMOGLOBIN 32.4 pg (27.0-33.0); MEAN CORPUSCULAR HGB CONC 32.7 g/dL (32.0-36.0); MEAN CORPUSCULAR VOLUME 98.9 fL (79-99); MONOCYTES # (AUTO) 0.8 K/uL (0.1-1.0); MONOCYTES % (AUTO) 16.2 % (3.0-13.0); NEUTROPHILS # (AUTO) 3.2 K/uL (1.8-7.7); NEUTROPHILS % (AUTO) 62.3 % (40.0-77.0); PLATELET COUNT (AUTO) 169 K/uL (130-400); RED BLOOD CELL COUNT(AUTO) 3.74 MIL/uL (4.50-6.20); RED CELL DISTRIBUTION WIDTH 16.5 % (11.0-15.5); WHITE BLOOD COUNT (AUTO) 5.1 K/uL (4.8-10.8)
--- NOTE | 2024-09-02 06:43 | ERN ---
General Chief Complaint: Abdominal Pain Stated Complaint: ABD PAIN Time Seen by MD: 06:22 History of Present Illness Initial Comments 53-year-old male, history of liver cirrhosis, who presents for abdominal distention and pain those reports 3-4 days in the increased swelling in his abdomen. He reports distention discomfort. No chest pain fevers vomiting diarrhea black stools or other symptoms she was never current with symptoms this before. It has been imaging this with Lasix Allergies: Coded Allergies: ondansetron (Unverified Allergy, Intermediate, 09/23/23) No Known Drug Allergies (Verified Allergy, Unknown, 09/23/23) Penicillins (Unverified Allergy, Unknown, 12/16/23) Home Meds Active Scripts Dicyclomine HCl (Bentyl) 20 Mg Tab, 20 MG PO QID for colic for 7 Days, #30 TAB 0 Refills Prov:AURORA WILCOX DO 09/24/23 Folic Acid (Folvite) 1 Mg Tab, 1 MG PO DAILY, #30 TAB Prov:TANA RENEE I REFERRAL MANAGER 09/13/23 Reported Medications Spironolactone (Spironolactone) 50 Mg Tablet, 1 TAB PO DAILY 03/23/24 Rifaximin (Xifaxan) 550 Mg Tablet, 1 TAB PO BID 03/23/24 Levothyroxine Sodium (Levothroid/Synthroid) 100 Mcg Tab, 1 TAB PO ACBKFST 03/23/24 Famotidine (Famotidine) 20 Mg Tablet, 1 TAB PO BID 12/17/23 Propranolol HCl (Inderal) 20 Mg Tab, 1 TAB PO BID 12/17/23 Lactulose (Enulose) 10 Gram/15 Ml Solution, 15 ML PO DAILY PRN for CONSTIPATION 12/17/23 Paroxetine HCl (Paroxetine HCl) 20 Mg Tablet, 1 TAB PO DAILY 12/17/23 Metoclopramide HCl (Metoclopramide HCl) 10 Mg Tablet, 1 TAB PO TID 12/17/23 Eltrombopag Olamine (Promacta) 50 Mg Tablet, 1 TAB PO DAILY 12/17/23 Furosemide (Furosemide) 20 Mg Tablet, 20 MG PO DAILY, TAB 09/10/23 Pantoprazole Sodium (Pantoprazole Sodium) 40 Mg Tablet.dr, 40 MG PO DAILY, TAB 09/10/23 Past Medical History Past Medical History: Constipation, Hypertension, Hyperthyroid, Liver Disease, Other Medical History Other: GASTRITIS; CIRRHOSIS OF LIVER Past Surgical History: None Social History Social History: Negative ROS Dictation CONSTITUTIONAL: No chills, no fever, no weakness, no diaphoresis, no malaise. HEAD/FACE: No signs of trauma. EENT: No eye pain, no blurred vision, no tearing, no double vision, no ear pain, no ear discharge, no nose pain, no nasal congestion, no throat pain, no throat swelling, no mouth pain. RESPIRATORY: No cough, no orthopnea, no SOB, no stridor, no wheezing. CARDIOVASCULAR: No chest pain, no edema, no palpitations, no syncope. GASTROINTESTINAL/ABDOMINAL: Abdominal pain and distention GENITOURINARY: No abnormal discharge, no dysuria, no frequent urination, no hematuria. No complaints of pain in the genitals. MUSCULOSKELETAL: No back pain, no gout, no joint pain, no joint swelling, no muscle pain, no muscle stiffness, no neck pain. INTEGUMENTARY: No change in color, no change in hair/nails, no dryness, no lesion, no lumps, no rash. NEUROLOGICAL/PSYCH: No anxiety, not depressed, no emotional problem, no headache, no numbness, no pre-existing deficit, no history of seizures, no tremors, no weakness. HEMATOLOGIC/LYMPHATIC: Not anemic, no history of blood clots, no apparent bleeding, no bruising, glands not swollen. All Systems Negative, Except as Noted. Physical Exam Physical Exam Dictation VITAL SIGNS: Reviewed. GENERAL APPEARANCE: Alert, oriented x3, no acute distress, obese. HEAD AND FACE: Non-traumatic. EYES: PERRL, pink conjunctivas, eyelid no trauma, anterior chamber clear. EARS: Pinnas intact and no signs of trauma or erythema. Ear canals clear and no discharge. TMs no erythema. NOSE: No discharge, no bleeding. OROPHARYNX: Mouth normal, teeth no caries, tongue pink. Pharynx clear, no eryt lizett. Tonsils no exudates, no abscesses noted. Mucous membrane moist. NECK: Supple, non-tender, no thyromegaly, no masses, no JVD, no bruits. BREAST: Deferred. CHEST: No tenderness, no crepitus, no paradoxical movement, no retractions. LUNGS: Clear, well-ventilated, symmetric, no rales, no wheezing, no rhonchi, no stridor, good breath sounds bilaterally. HEART: Regular rate, regular rhythm, no murmur, no gallops. VASCULAR: No peripheral edema. ABDOMEN: Abdominal distention/ascites no rebound tenderness. RECTAL: Deferred. GENITAL: Deferred. NEUROLOGICAL: Normal speech, gross motor function intact, gross sensory funct ion intact. MUSCULOSKELETAL: Neck nontender, full range of motion, back nontender, full range of motion. EXTREMITIES: Nontender, full range of motion. SKIN: Color pink, dry, no turgor, no rash, no lacerations, no abrasions, no contusions. LYMPHATICS: Deferred. Results Laboratory and Microbiology Lab and Micro Result Laboratory Tests Test 09/02/24 06:15 09/02/24 07:29 White Blood Count 5.1 K/uL (4.8-10.8) Red Blood Count 3.74 MIL/uL (4.50-6.20) L Hemoglobin 12.1 g/dL (14.0-18.0) L Hematocrit 37.0 % (42-54) L Mean Corpuscular Volume 98.9 fL (79-99) Mean Corpuscular Hemoglobin 32.4 pg (27.0-33.0) Mean Corpuscular Hemoglobin Concent 32.7 g/dL (32.0-36.0) Red Cell Distribution Width 16.5 % (11.0-15.5) H Platelet Count 169 K/uL (130-400) Mean Platelet Volume 12.0 fL (7.5-10.5) H Immature Granulocyte % (Auto) 1.2 % (0-1) H Neutrophils (%) (Auto) 62.3 % (40.0-77.0) Lymphocytes (%) (Auto) 14.2 % (21.0-51.0) L Monocytes (%) (Auto) 16.2 % (3.0-13.0) H Eosinophils (%) (Auto) 4.9 % (0.0-8.0) Basophils (%) (Auto) 1.2 % (0.0-5.0) Neutrophils # (Auto) 3.2 K/uL (1.8-7.7) Lymphocytes # (Auto) 0.7 K/uL (1.0-4.8) L Monocytes # (Auto) 0.8 K/uL (0.1-1.0) Eosinophils # (Auto) 0.25 K/uL (0.00-0.70) Basophils # (Auto) 0.06 K/uL (0.00-0.20) Absolute Immature Granulocyte (auto 0.06 K/uL (0-1) Nucleated Red Blood Cells 0.0 % (0.0-0.19) White Cell Morphology Comment See comments Prothrombin Time 14.3 SEC (9.6-11.6) H Prothromb Time International Ratio 1.31 (0.85-1.15) H Activated Partial Thromboplast Time 34.4 SEC (26.3-35.5) Sodium Level 138 mmol/L (136-145) Potassium Level 3.9 mmol/L (3.5-5.1) Chloride Level 107 mmol/L (101-111) Carbon Dioxide Level 26 mmol/L (21-32) Blood Urea Nitrogen 8 mg/dL (7-18) Creatinine 1.0 mg/dL (0.5-1.3) Glomerular Filtration Rate Calc 91 mL/min (>90) Random Glucose 100 mg/dL (70-105) Total Calcium 8.2 mg/dL (8.5-10.1) L Total Bilirubin 1.4 mg/dL (0.2-1.0) H Direct Bilirubin 0.5 mg/dL (0.0-0.3) H Aspartate Amino Transf (AST/SGOT) 179 U/L (10-37) H Alanine Aminotransferase (ALT/SGPT) 103 U/L (12-78) H Alkaline Phosphatase 143 U/L (50-136) H Ammonia 26 umol/L (11-32) Total Protein 7.8 g/dL (6.0-8.3) Albumin 2.5 g/dL (3.5-5.0) L Lipase 49 U/L (16-77) Whole Blood Glucose 113 MG/DL (70-110) H MDM CC: abd distention & pain Historian: patient Comorbidities: cirrhosis, tastritis, HTN, hypothyroidism Limitations by social determinates of health: none Ddx: ascites, SBP, gastritis, etc. VSS, remained stable in ED. On clinical exam, distended abdomen. No tenderness. Non-toxic. Clear lungs. Labs ( independently ordered and interpreted by me ): CBC no leukocytosis, no shift. Mild normocytic anemia hemoglobin 12.1. Platelets are stable. Coags show an INR of 1.3 PT 14.3, PTT stable. Chemistry panel is unremarkable. Liver enzymes mildly elevated, T bili 1.4. Ammonia normal. Lipase normal. Low albumin. CT abdomen and pelvis without contrast (Independently interpreted by me ): small to moderate volume ascites consistent with cirrhosis no other acute abnormalities. Consultation: Dr. Raines, patient's PCP. Recommends paracentesis and admission. Consultation: IR For paracentesis. Patient had a paracentesis performed by IR. 3.5 L of fluid was drained. Color yellow, 45 WBCs. No signs of SBP. [facility] Course Orders Procedure Category Date Status Time Vital Signs Per CPOE 09/02/24 Transmitted Routine 06:11 Saline Lock Iv CPOE 09/02/24 Transmitted 06:11 Cbc With Differential LAB 09/02/24 Complete 06:11 Lipase LAB 09/02/24 Complete 06:11 Basic Metabolic Panel LAB 09/02/24 Complete 06:11 Ammonia LAB 09/02/24 Complete 06:11 Hepatic Function Panel LAB 09/02/24 Complete 06:36 Prothrombin Time With LAB 09/02/24 Complete INR 06:36 Ct Abdomen/Pelvis W/O CT 09/02/24 Resulted Contrast 06:41 Fentanyl Citrate Pf PHA 09/02/24 Complete 0.05 Mg/Ml (Fentanyl 08:00 Current Medications Medications (Trade) Dose Ordered Sig/Kartik Route PRN Reason Start Time Stop Time Status Last Admin Dose Admin Fentanyl Citrate (FENTanyl CITRate PF 50 MCG/ 1 ML 2ML VIAL) 50 mcg ONCE ONCE IVP 09/02/24 08:00 09/02/24 08:01 DC 09/02/24 07:53 Vital Signs Date Time Temp Pulse Resp B/P (MAP) Pulse Ox O2 Delivery O2 Flow Rate FiO2 09/02/24 07:23 97.9 51 19 105/65 99 Room Air* 0 21 09/02/24 06:20 98.2 51 16 105/65 97 Room Air* 0 21 09/02/24 06:05 98.2 53 16 104/69 95 Room Air 0 DX & DISP Disposition: Inpatient ([facility]) Departure Impression: Primary Impression: Cirrhosis of liver with ascites Condition: Stable Referrals: SELF,REFERRAL (PCP) JACOB SUAZO DO Sep 02, 2024 06:43
[2024-09-02 06:45] LABS: POTASSIUM 3.9 mmol/L (3.5-5.1)
[2024-09-02 07:13] LABS: INR 1.31 (0.85-1.15); PROTHROMBIN TIME 14.3 SEC (9.6-11.6)
[2024-09-02 07:17] LABS: ALBUMIN 2.5 g/dL (3.5-5.0); BILIRUBIN,DIRECT 0.5 mg/dL (0.0-0.3); BILIRUBIN,TOTAL 1.4 mg/dL (0.2-1.0); TOTAL PROTEIN, SERUM 7.8 g/dL (6.0-8.3)
--- NOTE | 2024-09-02 07:23 | NUR ---
PATIENT MADE AWARE OF URINE SPECIMEN NEEDED FOR UA ORDER. URINAL PROVIDED.
[2024-09-02] MEDS: FENTanyl CITRate PF 50 MCG/1 ML 2ML VIAL IVP ONE (07:53)
--- NOTE | 2024-09-02 08:10 | HMCIMG ---
CT ABDOMEN/PELVIS W/O CONTRAST REASON: distension COMPARISON: 03/02/2024 FINDINGS: Lung bases are clear. There is nodular hepatic surface contour consistent with cirrhosis. There is splenomegaly. There is a small to moderate volume of ascites.. There are several very small punctate kidney stones, one on the left and several. On the right, nonobstructing. Kidneys appear otherwise normal. Pancreas appears unremarkable. Gallbladder is not well visualized. Bowel loops appear unremarkable. This includes normal appearance of the appendix There is no evidence of free fluid or intraperitoneal air. There are no focal fluid collections. Aorta and retroperitoneum appear normal as do pelvic soft tissue structures. The anterior abdominal wall is intact. Osseous structures appear unremarkable. IMPRESSION: 1. No acute finding in the abdomen or pelvis. 2. Nodular liver, splenomegaly and [id number] volume of ascites consistent with cirrhosis. 3. Tiny punctate kidney stones, nonobstructing. CT was performed with one or more following dose reduction techniques: automated exposure control, adjustment of the mA and kv according to patient's size, or use of a iterative reconstruction technique.
--- NOTE | 2024-09-02 09:47 | NUR ---
TO IR AT THIS TIME
--- NOTE | 2024-09-02 10:30 | NUR ---
POST PARACENTESIS REPORTS RESOLUTION OF SYMPTOMS. 3.5L REMOVED DURING PROCEDURE.
--- NOTE | 2024-09-02 10:45 | NUR ---
U/S GD PARACENTESIS PROCEDURE PERFORMED BY DR Josh HO. PUNCTURE SITE RLQ AND PATIENT TOLERATED PROCEDURE WELL. TOTAL REMOVED 3.5 LITERS OF CLOUD YELLOW FLUID. END OF PROCEDURE AT 1025. CATHETER REMOVED AND DRESSING APPLIED. NO BLEEDING NOTED. REPORT GIVEN TO Tian POWELL PATIENT TRANSPORTED TO ED 17 VIA STRETCHER AT 1045. AAO X3 WITH NO C/O PAIN. SPECIMEN SENT TO LAB.
--- NOTE | 2024-09-02 11:01 | HMCIMG ---
US ABDOMINAL PARACENTESIS IR REASON: ASCITES TECHNIQUE: Paracentesis was performed with ultrasound guidance. The puncture site was selected in the Right lower quadrant and overlying skin prepped and draped in a sterile fashion. 1% Xylocaine infiltration was performed. Catheter was placed in the fluid using trocar technique. 3.5 L were removed. Fluid sample was submitted for laboratory evaluation. The patient showed no evidence of complication during the procedure. IMPRESSION: 1. Ultrasound-guided paracentesis.
[2024-09-02 11:12] VITALS: BP 135/89; PULSE 51; RESP 16; TEMP 97.9; O2SAT 96
[2024-09-02 14:39] LABS: APPEARANCE BODY FLUID CLEAR (CLEAR); COLOR,BODY FLUID YELLOW (LT YELLOW); SPECIMENTYPE,BODY FLUID ASCITES; TOTAL VOLUME,BODY FLUID 3500 mL
[2024-09-02 14:58] LABS: BODY FLUID RBC 19 /cu. mm.; BODY FLUID WBC 45 /cu. mm.
[2024-09-02 16:01] LABS: BF LYMPHOCYTE 72 %; BF MONOCYTE 4 %; BF TOTAL CELLS COUNTED 100
== END 2024-09-02 11:40 | disposition home or self-care (01) ==
LOC: EDH 05:54 → EDHIP 08:27
PROVIDERS: ADMIT Internal Medicine Hematology & Oncology; ATTEND Internal Medicine Hematology & Oncology
DX: K74.60 Unspecified cirrhosis of liver (principal); R18.8 Other ascites; I10 Essential (primary) hypertension; E05.90 Thyrotoxicosis, unspecified without thyrotoxic crisis or storm; R14.0 Abdominal distension (gaseous); K29.70 Gastritis, unspecified, without bleeding; Z88.5 Allergy status to narcotic agent; Z79.899 Other long term (current) drug therapy
CPT/HCPCS: 96374; 99285; 80076; 80048; 82140; 83690; 85025; 89051; 85610; 85730; 87071; 87205; 82948; 36415; 74176; 49083; G0378 ×3; J3010; C1729